=== PATIENT | female | born 1995 | race Caucasian/White ===

== ENCOUNTER 2020-02-02 11:21 | Emergency (ER) | payer OTHER ==
[~2020-02-02] VITALS: Ht 160 cm; Wt 79.4 kg
[2020-02-02] MEDS ORDERED: ONDANSETRON HCL INJ 2MG/ML 2ML 2 MG/ML VIAL IV ONE (11:28)
[2020-02-02] MEDS ORDERED: SODIUM CHLORIDE 0.9% 1000ML 1,000 ML IV STA (11:28)
[2020-02-02] MEDS ORDERED: KETOROLAC TROMETHAMINE 30 MG/ML VIAL IV ONE (11:28)
--- NOTE | 2020-02-02 11:31 | Emergency Department Note ---
History of Present Illnes History of Present Illness Chief Complaint: Abdominal Complaints History of Present Illness This is a 24 year old female brought by [facility] for evaluation of LLQ which started this AM which radiates to L flank. Patient with recent miscarraige 01/12/2020 per patient. . 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 Arrival Mode: [place] Onset (how long ago): hour(s) Location: LLQ Radiation: Reports non-radiation Onset quality: sudden Duration (how long): hour(s) Timing of current episode: constant Progression: unchanged Chronicity: new Context: Denies recent illness, Denies recent surgery, Denies recent immobilization, Denies recent travel, Denies trauma/injury, Denies new medications, Denies hx of DVT/PE, Denies non-compliance w/ medications, Denies other Relieving factors: rest Exacerbating factors: movement Treatments prior to arrival: none Past Medical/Family History Physician Review I have reviewed the patient's past medical and family history. Any updates have been documented here. Review of Systems Review of Systems Constitutional: Reports no symptoms EENTM: Reports no symptoms Cardiovascular: Reports no symptoms Respiratory: Reports no symptoms Gastrointestinal: Reports abdominal pain Genitourinary: Reports pain Musculoskeletal: Reports no symptoms Integumentary: Reports no symptoms Neurological: Reports no symptoms Psychological: Reports no symptoms Endocrine: Reports no symptoms Hematological/Lymphatic: Reports no symptoms Physical Exam Related Data Allergies: Coded Allergies: No Known Allergies (Unverified , 02/02/20) Triage Vital Signs Vital Signs Date Time Temp Pulse Resp B/P (MAP) Pulse Ox O2 Delivery O2 Flow Rate FiO2 02/02/20 11:29 98.2 87 16 115/72 99 Room Air Vital signs reviewed: Yes Physical Exam CONSTITUTIONAL Constitutional: Present well-developed, Present well-nourished HENT HENT: Present normocephalic, Present atraumatic, Present oropharynx clear/moist, Present nose normal HENT L/R: Present left ext ear normal, Present right ext ear normal EYES Eyes: Reports PERRL, Reports conjunctivae normal NECK Neck: Present ROM normal PULMONARY Pulmonary: Present effort normal, Present breath sounds normal CARDIOVASCULAR Cardiovascular: Present regular rhythm, Present heart sounds normal, Present capillary refill normal, Present normal rate GASTROINTESTINAL Abdominal: Present soft, Present tender (LLQ) GENITOURINARY Genitourinary: Present exam deferred SKIN Skin: Present warm, Present dry MUSCULOSKELETAL Musculoskeletal: Present ROM normal NEUROLOGICAL Neurological: Present alert, Present oriented x 3, Present no gross motor or sensory deficits PSYCHOLOGICAL Psychological: Present mood/affect normal, Present judgement normal Results Laboratory Lab results reviewed: Yes Imaging Imaging results reviewed: Yes Impressions [place] [address] Patient Name: BEE ROSE MR #: [id number] : 1995 Age/Sex: 24/F Req #: [id number] Adm Physician: Ordered by: CALE SIMS DO Report #: [id number] Location: ER Room/Bed: Procedure: [id number] US/US OB TRANSVAG 1ST TRI SINGLE Exam Date: 02/02/20 Exam Time: 1300 REPORT STATUS: Signed EXAM: Obstetrical Ultrasound HISTORY: ^r/o ectopic COMPARISON: HISTORY: Patient reports loss on 01/12/2020. Beta hCG 73. TECHNIQUE: Real time transpelvic and endovaginal ultrasound was performed. Color and spectral Doppler ultrasound was performed to evaluate ovarian blood flow. FINDINGS: The uterus measures 7.5 x 2.5 x 3.6 cm. The right ovary is not visualized due to bowel gas. The left ovary measures 5.2 x 3.1 x 3.3 cm. Doppler demonstrates normal blood flow in the left ovaries. Left ovarian 2 cm heterogeneous lesion with peripheral vascularity. IMPRESSION: 1. Right ovary is not visualized due to overlying bowel gas. 2. Left ovarian 2 cm lesion is indeterminant and may represent a hemorrhagic cyst. However, ectopic could also have this appearance. Recommend correlation with physical exam. 3. Consider serial beta hCGs and short interval repeat exam as clinically indicated. Signed by: Tomasz Garay MD on 02/02/2020 2:42 PM Dictated By: TOMASZ GARAY DO 41 Transcribed By: YOANNA on 02/02/201441 COPY TO: CALE SIMS DO~ Assessment & Plan Medical Decision Making MDM Diff Dx : ectopic , UTI, kidney stone, ovarian cyst Patient with decreasing beta quant level since last week of december. Copy of imaging given to patient and patient instructed to f/u with log deck tender. presumed ectopic measures 2 cm which may be amenable to methrotrexate Assessment & Plan Final Impression: (1) LLQ pain (2) Depart Disposition: HOME, SELF-CARE Last Vital Signs Date Time Temp Pulse Resp B/P (MAP) Pulse Ox O2 Delivery O2 Flow Rate FiO2 02/02/20 15:00 98.0 82 18 115/72 99 Room Air CALE SIMS DO Feb 02, 2020 11:31
[2020-02-02 11:42] LABS: BASOPHILS % 0.5 % (0.0-1.0); EOSINOPHILS # (AUTO) 0.1 (0.0-0.4); EOSINOPHILS % 0.7 % (0.0-6.0); HEMATOCRIT 35.7 % (34.2-44.1); HEMOGLOBIN 11.7 g/dL (12.0-16.0); LYMPHOCYTES % 22.8 % (18.0-39.1); MEAN CORPUSCULAR HEMOGLOBIN 29.2 pg (28-32); MEAN CORPUSCULAR HGB CONC 32.8 g/dL (31-35); MONOCYTES # (AUTO) 0.7 (0.2-0.8); MONOCYTES % 7.9 % (4.4-11.3); NEUTROPHILS % 67.9 % (38.7-80.0); PLATELET COUNT 273 x10e3/uL (140-360); RED BLOOD COUNT 4.01 x10e6/uL (3.6-5.1); RED CELL DISTRIBUTION WIDTH 12.1 % (11.7-14.4)
[2020-02-02 12:02] LABS: ALANINE AMINOTRANSFERASE 148 IU/L (0-55); ALBUMIN 3.8 g/dL (3.5-5.0); ALBUMIN/GLOBULIN RATIO 1.3 (0.8-2.0); ALKALINE PHOSPHATASE 47 IU/L (40-150); ANION GAP 11.7 mmol/L (8-16); BLOOD UREA NITROGEN 11 mg/dL (7-26); BUN/CREATININE RATIO 17 (6-25); CALCIUM 8.2 mg/dL (8.4-10.2); CARBON DIOXIDE 22 mmol/L (22-29); CHLORIDE 108 mmol/L (98-107); CREATININE, SERUM 0.65 mg/dL (0.57-1.11); EST GLOMERULAR FILTRATION RATE > 60 ML/MIN (60-); GLUCOSE 97 mg/dL (74-118); POTASSIUM 3.7 mmol/L (3.5-5.1); SODIUM 138 mmol/L (136-145)
[2020-02-02 12:08] LABS: BILIRUBIN,URINE NEGATIVE (NEGATIVE); CLARITY,URINE CLEAR (CLEAR); COLOR,URINE YELLOW (YELLOW); KETONES,URINE 1+ (NEGATIVE); LEUKOCYTE ESTERASE ,URINE NEGATIVE (NEGATIVE); NITRITE,URINE NEGATIVE (NEGATIVE); PROTEIN,URINE DIPSTICK NEGATIVE (NEGATIVE); URINE UROBILINOGEN 0.2 mg/dL (0.2 - 1)
[2020-02-02 12:12] LABS: PREGNANCY TEST, URINE POSITIVE (NEGATIVE)
[2020-02-02 12:26] LABS: BACTERIA,URINE FEW /HPF; EPITHELIAL CELLS,URINE FEW /LPF; RBC,URINE >50 /HPF (0-5); WBC,URINE (MAN) 0-5 /HPF (0-5)
--- OUTSIDE RECORDS SUMMARY | 2020-02-02 12:53 | XMS REPORT | Continuity of Care Document ---
Author Author [facility] t Organization [facility] Address [address] [place] [address] Phone Unavailable Care Team Providers Care Assistant Spa Director Name Role Phone Asked, Pcp No PCP Unavailable Ana Ocasio MD Attphys Problems This patient has no known problems. Allergies, Adverse Reactions, Alerts This patient has no known allergies or adverse reactions. Social History Social Habit Start Date Stop Date Quantity Comments Source ASSERTION Kishan Method ist Sex Assigned At Flaviotodd Mae Tobacco use and exposure 2020-01-08 00:00:00 2020-01-08 00:00:00 Miriam gabriel used Kishan Mae Alcohol intake 2020-01-08 00:00:00 2020-01-08 00:00:00 Ex-drinker (fi nding) Kishan Mae Smoking Status Start Date Stop Date Source Never smoker Kishan sr Medications Ordered Medication Name Filled Medication Name Start Date Stop Da te Current Medication? Ordering Clinician Indication Dosage Frequency Signature (SIG) Comments Components Source no122/iron/folic acid ( MULTI ORAL) 2 19:13:58 Yes Take by mouth. Kishan Gonzalez ethodi Vital Signs Vital Name Observation Time Observation Value Comments Source Systolic blood pressure 2020-01-08 19:13:00 115 mm[Hg] Kishan Mae Diastolic blood pressure 2020-01-08 19:13:00 69 mm[Hg] Kishan Mae Heart rate 2020-01-08 19:13:00 79 /min Kishan Mae Respiratory rate 2020-01-08 19:13:00 16 /min Ebony Mae Oxygen saturation in Arterial blood by Pulse oximetry 01-07 19:13:00 99 /min Kishan Mae Body temperature 2020-01-08 14:04:00 37.11 Tanya Hous rosario Mae Body height 2020-01-08 14:04:00 160 cm Kishan Mae Body weight 2020-01-08 14:04:00 79.379 kg Kishan Mae BMI 2020-01-08 14:04:00 31.00 kg/m2 Kishan Mae Procedures Procedure Date / Time Performed Performing Clinician [facility] e US SINGLE LESS THAN 14 WEEKS 2020-01-08 16:05:47 Khoi Treviño US TRANSVAGINAL 2020-01-08 16:05:34 Khoi Alcantar URINALYSIS 2020-01-08 14:45:00 Khoi Alcantar Met sterling HCG QUALITATIVE, URINE SCREEN 2020-01-08 14:45:00 Khoi Alcantar HC COMPLETE BLD COUNT W/AUTO DIFF 2020-01-08 14:30:00 Radha Alcantarl Ana Mae COMPREHENSIVE METABOLIC PANEL 2020-01-08 14:30:00 Khoi Alcantar ESTIMATED GFR 2020-01-08 14:30:00 Khoi Alcantar Met sterling HCG QUANTITATIVE, SERUM 2020-01-08 14:30:00 Khoi Alcantar Plan of Care Planned Activity Planned Date Details Comments Source Future Scheduled Test 2019-11-14 00:00:00 INFLUENZA VACCINE [code = INFLUENZA VACCINE] Kishan Mae Future Scheduled Test 2015 00:00:00 Screening for sj gnant neoplasm of cervix (procedure) [code = 320957825] Kishan Comer t Encounters Start Date/Time End Date/[facility] ID Source 2020-01-08 00:00:00 2020-01-08 00:00:00 Emergency [facility] [id number] Kishan Mae Results Test Description Test Time Test Comments Results Result Comments Source hCG quantitative, serum 2020-01-08 18:28:37 Test Item hCG quantitative, serum (test code = 95684-6) 130 0- 5 mIU /mL H Reference range for HCG Quant applies to males and non-females.Post Menopausal 0.0 - 8.1 mIU/mL Lab Interpretation (test code = 54807-7) Abnormal Kishan Durán Single Less Than 14 [id number] 16:39:36Hm Interface, Radiology Results 01/08/2020 4:49 PM CDTEXAMINATION: US TRANSVAGINAL, US SINGLE LESS THAN 14 WEEKSHISTORY: Vaginal BleedTECHNIQUE: Pelvic ultrasound was performed. Transabdominal and transvaginal images were obtained.COMPARISON: None.FINDINGS: 1.Uterus measures 7.6 x 3.6 x 4.0 cm. No discrete uterine mass. There is thickened echogenic tissue within the endometrial cavity without discrete gestational sac.2.The right ovary demonstr ates intraovarian Doppler flow and measures 3.6 x 1.7 x 2.0 cm. There is a nonsp ecific 3 mm cystic lesion centrally. No suspicious ovarian lesion identified.3.T he left ovary demonstrates intraovarian Doppler flow and measures 3.0 x 2.5 x 2. 1 cm. There is a nonspecific 3 mm cystic lesion centrally. 4.No free fluid seen in the pelvis.IMPRESSION:1.Endometrial cavity mildly distended by echogenic mate rial, without intrauterine gestational sac. Findings may reflect very early preg colin versus missed . Recommend correlation with serial beta-HCG and fol low-up ultrasound in 1-2 weeks.2.A 3 mm cystic lesion in the left ovary is nonsp ecific. Recommend attention on follow-up.[id number] MethodistUS [id number] 16:39:36Hm Interface, Radiology Results 01/08/2020 4:49 PM CDTEXAMINATION: US TRANSVAGINAL, US SINGLE LESS THAN 14 WEEKSHISTORY: Vaginal BleedTECHNIQUE: Pelvic ultrasound was performed. Transabdominal and transvaginal images were obtained.COMPARISON: None.FINDINGS: 1.Uterus measures 7.6 x 3.6 x 4.0 cm. No discrete uterine mass. There is thickened echogenic tissue within the endometrial cavity without discrete gestational sac.2.The right ovary demonstr ates intraovarian Doppler flow and measures 3.6 x 1.7 x 2.0 cm. There is a nonsp ecific 3 mm cystic lesion centrally. No suspicious ovarian lesion identified.3.T he left ovary demonstrates intraovarian Doppler flow and measures 3.0 x 2.5 x 2. 1 cm. There is a nonspecific 3 mm cystic lesion centrally. 4.No free fluid seen in the pelvis.IMPRESSION:1.Endometrial cavity mildly distended by echogenic mate rial, without intrauterine gestational sac. Findings may reflect very early preg colin versus missed . Recommend correlation with serial beta-HCG and fol low-up ultrasound in 1-2 weeks.2.A 3 mm cystic lesion in the left ovary is nonsp ecific. Recommend attention on follow-up.[id number] Bahai Comprehensive metabolic [id number] 15:06:27* Test Item Value Reference Range Interpretation Comments Sodium (test code = 2951-2) 136 135- 148 mEq/L Potassium (test code = 2823-3) 4.0 3.5- 5.0 mEq/L Chloride (test code = 2075-0) 102 98- 112 mEq/L CO2 (test code = 2027-9) 24 24- 31 mEq/L Anion gap (test code = 85227-2) 10@ANIO 7- 15 mEq/L BUN (test code = 3094-0) 14 mg/dL 6-20 Creatinine (test code = 2160-0) 0.75 mg/dL 0.5-0.9 Glucose (test code = 2345-7) 94 mg/dL 65-99 Calcium (test code = 75388-9) 9.3 mg/dL 8.3-10.2 Protein (test code = 2885-2) 7.0 g/dL 6.3-8.3 Albumin (test code = 1751-7) 4.2 g/dL 3.5-5 A/G ratio (test code = 1759-0) 1.5 0.7-3.8 Alkaline phosphatase (test code = 6768-6) 57 U/L 35-104 AST (test code = 1920-8) 19 U/L 10-35 ALT (test code = 1742-6) 28 U/L 5-50 Total bilirubin (test code = 1974-) 0.1 mg/dL 0-1.2 A Lab Interpretation (test code = 05917-5) Abnormal Kishan MaeEstimated [id number] 15:06:27* Test Item Value Reference Range Interpretation Comments Estimated GFR (test code = 5488) >=90 mL/min/1.73 m2 Catergory Units InterpretationG1 >=90 Normal or highG2 60-89 Mildly aorhuootkO0e 45-59 Mildly to moderately bhuotnilgB3e 30-44 Moderately to severely decreasedG4 15-29 Severely decreasedG5 <15 Kidney failureThe eGFR was calculated using the Chronic Kidney Disease Epidemiology Collaboration (CKD-EPI) equation. Interpretation is based on recommendations of the National Kidney Foundation-Kidney Disease Outcomes Quality Initiative (NKF-KDOQI) published in 2014. [place] MethodisthCG qualitative, urine [id number] 14:59:38* Test Item Value Reference Range Interpretation Comments hCG qualitative, urine (test code = 2106-3) Positive Sensitivity of HCG test: 25 mIU/mLNegative test results in patients suspected to be should be retested with a sample obtained 48-72 hours later, or by performing a quantitative assay. [place] MtoupuzijWpxixflewr9665-27-57 14:59:38* Test Item Value Reference Range Interpretation Comments Glucose, UA (test code = 55099-1) Negative Negative Bilirubin, UA (test code = 5770-3) Negative Negative Ketones, UA (test code = 2514-8) Negative Negative Specific gravity, UA (test code = 5811-5) 1.015 1.001-1.035 Blood, UA (test code = 5794-3) Moderate Negative A pH, UA (test code = 5803-2) 6.5 5.0-8.5 Protein, UA (test code = 93836-0) Negative Negative Urobilinogen, UA (test code = 64350-8) <2.0 <2.0 Nitrite, UA (test code = 5802-4) Negative Negative Leukocyte esterase, UA (test code = 5799-2) Negative Negative Color, UA (test code = 5778-6) Yellow Appearance, UA (test code = 5767-9) Hazy Lab Interpretation (test code = 86013-2) Abnormal [place] MethodistCBC with platelet and [id number] 14:50:42* Test Item Value Reference Range Interpretation Comments WBC (test code = 12422-1) 7.85 4.50- 11.00 k/uL RBC (test code = 79723-4) 3.86 m/uL 4.2-5.5 L HGB (test code = 718-7) 11.6 g/dL 12-16 L HCT (test code = 4544-3) 34.4 % 37-47 L MCV (test code = 787-2) 89.1 fL 82-100 MCH (test code = 785-6) 30.1 pg 27-34 MCHC (test code = 786-4) 33.7 g/dL 31-37 RDW - SD (test code = 52638-1) 38.1 fL 37-55 MPV (test code = 86397-1) 10.2 fL 8.8-13.2 Platelet count (test code = 29656-1) 289 150- 400 k/uL Neutrophils (test code = 17390-2) 55.3 % 39-69 Lymphocytes (test code = 67041-9) 33.6 % 25-45 Monocytes (test code = 60158-3) 9.4 % 0-10 Eosinophils (test code = 75744-5) 1.3 % 0-5 Basophils (test code = 71979-8) 0.4 % 0-1 Lab Interpretation (test code = 21914-1) Abnormal Kishan Mae
--- OUTSIDE RECORDS SUMMARY | 2020-02-02 12:53 | XMS REPORT | Clinical Summary ---
Author Author [facility]an [facility] Organization [facility] Address Unknown Phone Unavailable Care Team Providers Care Mirror Department Supervisor Name Role Phone Asked, No Pcp PCP Unavailable Allergies No Known Active Allergies Medications End Date Status Medication Sig Dispensed Refills Start Date Active no122/iron/folic Take by 0 acid ( MULTI mouth. ORAL) Active Problems Comments Yes No additional problems on file Encounters Care Team Description Date Type Specialty Richard Ocasio MD Threatened (Primary Dx) 01/08/2020 Emergency Emergency Medicine after 02/01/2019 Surgical History Surgery Date Site/Laterality Comments AUGMENTATION, BREAST, Bilateral WITH PROSTHETIC IMPLANT RENAL ARTERY STENT Left removed Medical History Medical History Date Comments No known health problems Social History Date Tobacco Use Types Packs/Day Years Used Never Smoker Smokeless Tobacco: Never Used Drinks/Week oz/Week Comments Alcohol Use Not Currently Comments Yes Sex Assigned at Date Recorded Not on file Obstetrics History Term Pre Abrt (TAB) (SAB) (Ect) Mult Lvng Comments Grav Para 1 Date GA Total Labor Labor/2nd/3rd Weight Sex Delivery Anes PTL Isela A1 A5 Name Clin Outcome Current Last Filed Vital Signs Reading Time Taken Comments Vital Sign 115/69 01/08/2020 7:13 PM CDT Blood Pressure 79 01/08/2020 7:13 PM CDT Pulse 37.1 C (98.8 F) 01/08/2020 2:04 PM CDT Temperature 16 01/08/2020 7:13 PM CDT Respiratory Rate 99% 01/08/2020 7:13 PM CDT Oxygen Saturation - - Inhaled Oxygen Concentration 79.4 kg (175 lb) 01/08/2020 2:04 PM CDT Weight 160 cm (5' 3") 01/08/2020 2:04 PM CDT Height 31 01/08/2020 2:04 PM CDT Body Mass Index Plan of Treatment Health Maintenance Due Date Last Done Comments CERVICAL CANCER SCREENING 2015 INFLUENZA VACCINE 11/14/2019 Procedures Comments Procedure Name Priority Date/Time Associated Diag nosis US SINGLE LESS STAT 01/08/2020 THAN 14 WEEKS 4:05 PM CDT US TRANSVAGINAL STAT 01/08/2020 4:05 PM CDT HCG QUALITATIVE, URINE STAT 01/08/2020 SCREEN 2:45 PM CDT URINALYSIS STAT 01/08/2020 2:45 PM CDT HCG QUANTITATIVE, SERUM Routine 01/08/2020 2:30 PM CDT ESTIMATED GFR STAT 01/08/2020 2:30 PM CDT COMPREHENSIVE METABOLIC STAT 01/08/2020 PANEL 2:30 PM CDT HC COMPLETE BLD COUNT STAT 01/08/2020 W/AUTO DIFF 2:30 PM CDT after 02/01/2019 Results * US Single Less Than 14 Weeks (01/08/2020 4:05 PM CDT) Specimen Narrative Performed At EXAMINATION: US TRANSVAGINAL, US SINGLE LESS THAN 14 WEEKS [facility] HISTORY: Vaginal Bleed TECHNIQUE: Pelvic ultrasound was perfor med. Transabdominal and transvaginal images were obtained. COMPARISON: None. FINDINGS: 1.Uterus measures 7.6 x 3.6 x 4.0 cm. N o discrete uterine mass. There is thickened echogenic tissue within the e ndometrial cavity without discrete gestational sac. 2.The right ovary demonstrates intraova mini Doppler flow and measures 3.6 x 1.7 x 2.0 cm. There is a nonspecific 3 mm c ystic lesion centrally. No suspicious ovarian lesion identified. 3.The left ovary demonstrates intraovar enedelia Doppler flow and measures 3.0 x 2.5 x 2.1 cm. There is a nonspecific 3 mm cys tic lesion centrally. 4.No free fluid seen in the pelvis. IMPRESSION: 1.Endometrial cavity mildly distended b y echogenic material, without intrauterine gestational sac. Findings may reflect very early versus missed . Recommend correlation with serial beta-HCG and follow-up ultrasound in 1-2 weeks. 2.A 3 mm cystic lesion in the left ovar y is nonspecific. Recommend attention on follow-up. [id number] Procedure Note Hm Interface, Radiology Results - 01/08/2020 4:49 PM CDT EXAMINATION: US TRANSVAGINAL, US SINGLE LESS THAN 14 WEEKS HISTORY: Vaginal Bleed TECHNIQUE: Pelvic ultrasound was performed. Transabdominal and transvaginal images were obtained. COMPARISON: None. FINDINGS: 1.Uterus measures 7.6 x 3.6 x 4.0 cm. No discrete uterine mass. There is thickened echogenic tissue within the endometrial cavity without discrete gestational sac. 2.The right ovary demonstrates intraovar enedelia Doppler flow and measures 3.6 x 1.7 x 2.0 cm. There is a nonspecific 3 mm cystic lesion centrally. No suspicious ovarian lesion identified. 3.The left ovary demonstrates intraovari an Doppler flow and measures 3.0 x 2.5 x 2.1 cm. There is a nonspecific 3 mm cystic lesion centrally. 4.No free fluid seen in the pelvis. IMPRESSION: 1.Endometrial cavity mildly distended by echogenic material, without intrauterine gestational sac. Findings may reflect very early versus missed . Recommend correlation with serial beta-HCG and follow-up ultrasound in 1-2 weeks. 2.A 3 mm cystic lesion in the left ovary is nonspecific. Recommend attention on follow-up. [id number] Performing Organization Address City/State/ZIP Code P chema Number [facility] [address] [place] [address] * US Transvaginal (01/08/2020 4:05 PM CDT) Specimen Narrative Performed At EXAMINATION: US TRANSVAGINAL, US SINGLE LESS THAN 14 WEEKS [facility] HISTORY: Vaginal Bleed TECHNIQUE: Pelvic ultrasound was perfor med. Transabdominal and transvaginal images were obtained. COMPARISON: None. FINDINGS: 1.Uterus measures 7.6 x 3.6 x 4.0 cm. N o discrete uterine mass. There is thickened echogenic tissue within the e ndometrial cavity without discrete gestational sac. 2.The right ovary demonstrates intraova mini Doppler flow and measures 3.6 x 1.7 x 2.0 cm. There is a nonspecific 3 mm c ystic lesion centrally. No suspicious ovarian lesion identified. 3.The left ovary demonstrates intraovar enedelia Doppler flow and measures 3.0 x 2.5 x 2.1 cm. There is a nonspecific 3 mm cys tic lesion centrally. 4.No free fluid seen in the pelvis. IMPRESSION: 1.Endometrial cavity mildly distended b y echogenic material, without intrauterine gestational sac. Findings may reflect very early versus missed . Recommend correlation with serial beta-HCG and follow-up ultrasound in 1-2 weeks. 2.A 3 mm cystic lesion in the left ovar y is nonspecific. Recommend attention on follow-up. [id number] Procedure Note Interface, Radiology Results Incoming - 01/08/2020 4:49 PM CDT EXAMINATION: US TRANSVAGINAL, US SINGLE LESS THAN 14 WEEKS HISTORY: Vaginal Bleed TECHNIQUE: Pelvic ultrasound was performed. Transabdominal and transvaginal images were obtained. COMPARISON: None. FINDINGS: 1.Uterus measures 7.6 x 3.6 x 4.0 cm. No discrete uterine mass. There is thickened echogenic tissue within the endometrial cavity without discrete gestational sac. 2.The right ovary demonstrates intraovar enedelia Doppler flow and measures 3.6 x 1.7 x 2.0 cm. There is a nonspecific 3 mm cystic lesion centrally. No suspicious ovarian lesion identified. 3.The left ovary demonstrates intraovari an Doppler flow and measures 3.0 x 2.5 x 2.1 cm. There is a nonspecific 3 mm cystic lesion centrally. 4.No free fluid seen in the pelvis. IMPRESSION: 1.Endometrial cavity mildly distended by echogenic material, without intrauterine gestational sac. Findings may reflect very early versus missed . Recommend correlation with serial beta-HCG and follow-up ultrasound in 1-2 weeks. 2.A 3 mm cystic lesion in the left ovary is nonspecific. Recommend attention on follow-up. [id number] Performing Organization Address City/State/ZIP Code P chema Number [facility] [address] [place] [address] * Urinalysis (01/08/2020 2:45 PM CDT) Glucose, UA Negative Negative [facility] Bilirubin, UA Negative Negative [facility] Ketones, UA Negative Negative [facility] Specific 1.015 1.001 - 1.035 [place] gravity, UA [facility] Blood, UA Moderate (A) Negative [facility] pH, UA 6.5 5.0 - 8.5 [facility] Protein, UA Negative Negative [facility] Urobilinogen, <2.0 <2.0 [facility] Nitrite, UA Negative Negative [facility] Leukocyte Negative Negative [facility] esterase, UA [facility] Color, UA Yellow [facility] Appearance, UA Hazy [facility] Specimen Urine Performing Organization Address City/State/[place] [address] PATHOLOGY AND GENOMIC [address] [place] [address] [facility] * hCG qualitative, urine screen (01/08/2020 2:45 PM CDT) Pathologist [facility] hCG Positive [facility] qualitative, Comment: SANDRA LOBATO urine Sensitivity of HCG test: 25 EMERGENCY CARE mIU/mL CENTER Negative test results in patients suspected to be should be retested with a sample obtained 48-72 hours later, or by performing a quantitative assay. Specimen Urine Performing Organization Address [facility] [place] [address] PATHOLOGY AND GENOMIC [address] [place] [address] [facility] * Estimated GFR (01/08/2020 2:30 PM CDT) Pathologist [facility] Estimated GFR >=90 mL/min/1.73 m2 [facility] Comment: SANDRA LOBATO [facility] EMERGENCY CARE Interpretation CENTER G1 >=90 Normal or high G2 60-89 Mildly decreased G3a 45-59 Mildly to moderately decreased G3b 30-44 Moderately to severely decreased G4 15-29 Severely decreased G5 <15 Kidney failure The eGFR was calculated using the Chronic Kidney Disease Epidemiology Collaboration (CKD-EPI) equation. Interpretation is based on recommendations of the National Kidney Foundation-Kidney Disease Outcomes Quality Initiative (NKF-KDOQI) published in 2014. Specimen Performing Organization Address City/[facility]/[place]IP [place] [address] PATHOLOGY AND GENOMIC [address] [place] [address] [facility] [place] * CBC with platelet and differential (01/08/2020 2:30 PM CDT) WBC 7.85 4.50 - 11.00 k/uL [facility] RBC 3.86 (L) 4.20 - 5.50 m/uL [facility] HGB 11.6 (L) 12.0 - 16.0 g/dL [facility] HCT 34.4 (L) 37.0 - 47.0 % [facility] MCV 89.1 82.0 - 100.[address] [facility] MCH 30.1 27.0 - 34.[address] [facility] MCHC 33.7 31.0 - 37.0 g/dL [facility] RDW - SD 38.1 37.0 - 55.[address] [facility] MPV 10.2 8.8 - 13.[address] [facility] Platelet count 289 150 - 400 k/uL [facility] Neutrophils 55.3 39.0 - 69.0 % [facility] Lymphocytes 33.6 25.0 - 45.0 % [facility] Monocytes 9.4 0.0 - 10.0 % [facility] Eosinophils 1.3 0.0 - 5.0 % [facility] Basophils 0.4 0.0 - 1.0 % [facility] Specimen Blood Performing Organization Address City/State/ZIP Code P chema Number [address] [place] [address] PATHOLOGY AND GENOMIC [address] [place] [address] [address] [facility] [address] [place] [address] [facility] * hCG quantitative, serum (01/08/2020 2:30 PM CDT) hCG 130 (H) 0 - 5 mIU/mL [facility] quantitative, Comment: RASTAFARI serum Reference range for HCG Quant [facility]OS[facility] L applies to males and non- females. Post Menopausal 0.0 - 8.1 mIU/mL Specimen Blood Performing Organization Address [facility]/ZIP Code P chema Number [facility] OF [address] [place] [address] PATHOLOGY AND GENOMIC MEDICINE [facility] [address] * Comprehensive metabolic panel (01/08/2020 2:30 PM CDT) Sodium 136 135 - 148 mEq/L [facility] Potassium 4.0 3.5 - 5.0 mEq/L [facility] Chloride 102 98 - 112 mEq/L [facility] CO2 24 24 - 31 mEq/L [facility] Anion gap 10@ANIO 7 - 15 mEq/L [facility] BUN 14 6 - 20 mg/dL [facility] Creatinine 0.75 0.50 - 0.90 mg/dL [facility] Glucose 94 65 - 99 mg/dL [facility] Calcium 9.3 8.3 - 10.2 mg/dL [facility] Protein 7.0 6.3 - 8.3 g/dL [facility] Albumin 4.2 3.5 - 5.0 g/dL [facility] A/G ratio 1.5 0.7 - 3.8 [facility] Alkaline 57 35 - 104 U/L [facility] phosphatase [facility] AST 19 10 - 35 U/L [facility] ALT 28 5 - 50 U/L [facility] Total bilirubin 0.1 (A) 0.0 - 1.2 mg/dL [facility] Specimen Blood Performing Organization Address City/[facility]/ZIP Code P chema Number [facility] [address] [facility] 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
[2020-02-02] MEDS ORDERED: MORPHINE SULFATE INJ 4 MG/ML INJ 1ML IV ONE (12:55)
--- NOTE | 2020-02-02 14:46 | Diagnostic Imaging Report ---
EXAM: Obstetrical Ultrasound HISTORY: ^r/o ectopic COMPARISON: HISTORY: Patient reports loss on 01/12/2020. Beta hCG 73. TECHNIQUE: Real time transpelvic and endovaginal ultrasound was performed. Color and spectral Doppler ultrasound was performed to evaluate ovarian blood flow. FINDINGS: The uterus measures 7.5 x 2.5 x 3.6 cm. The right ovary is not visualized due to bowel gas. The left ovary measures 5.2 x 3.1 x 3.3 cm. Doppler demonstrates normal blood flow in the left ovaries. Left ovarian 2 cm heterogeneous lesion with peripheral vascularity. IMPRESSION: 1. Right ovary is not visualized due to overlying bowel gas. 2. Left ovarian 2 cm lesion is indeterminant and may represent a hemorrhagic cyst. However, ectopic could also have this appearance. Recommend correlation with physical exam. 3. Consider serial beta hCGs and short interval repeat exam as clinically indicated. Signed by: Tomasz Morales MD on 02/02/2020 2:42 PM
== END 2020-02-02 15:43 | disposition home or self-care (01) ==
LOC: ER 12:34
DX: Z33.1 Pregnant state, incidental (principal); R10.32 Left lower quadrant pain
CPT/HCPCS: 36415; 76817; 80053; 81001; 81025; 84702; 85025; 99284; J1885; J2270; J2405; J7030